=== PATIENT | female | born 1980 | race Caucasian/White ===

== ENCOUNTER → 2021-12-31 09:13 | Outpatient (BNVA) | payer MEDICAID, SELFPAY | PROVIDERS: PCP Obstetrics & Gynecology; Referring Provider Obstetrics & Gynecology; Visit Provider Internal Medicine Rheumatology | DX: M25.50 Pain in unspecified joint (principal); R76.8 Other specified abnormal immunological findings in serum; Z79.899 Other long term (current) drug therapy; Z11.59 Encounter for screening for other viral diseases; Z11.1 Encounter for screening for respiratory tuberculosis; G35 Multiple sclerosis; G80.9 Cerebral palsy, unspecified; Z91.014 Allergy to mammalian meats | CPT/HCPCS: 71046; 73130; 73630; 80076; 82306; 82565; 84439; 84443; 85025; 85651; 86140; 86160; 86162; 86235; 86255; 86376; 86480; 86704; 86803; 87340; 99205 ==

== ENCOUNTER → 2022-01-31 10:06 | Outpatient (BNVA) | payer MEDICAID, SELFPAY | PROVIDERS: PCP Obstetrics & Gynecology; Referring Provider Internal Medicine Rheumatology; Visit Provider Specialist | DX: G80.1 Spastic diplegic cerebral palsy (principal); G43.711 Chronic migraine without aura, intractable, with status migrainosus; F41.9 Anxiety disorder, unspecified | CPT/HCPCS: 99204; 99205 ==

== ENCOUNTER 2022-02-07 11:47 | Outpatient (CLI) | payer MEDICAID, SELFPAY ==
--- NOTE | 2022-02-07 11:58 | MR_ITS ---
WS: [id number] MRI HEAD WITH CONTRAST TECHNIQUE: Sagittal T1, T2 axial, T2 axial FLAIR, axial susceptibility weighted imaging, axial diffus ion weighted images, and coronal T2 images were obtained. Pre and post-T1 axial and post T1 coronal i mages. ADC and FSPGR images. CLINICAL INFORMATION: G35 - Multiple sclerosis COMPARISON: None. FINDINGS: No evidence of restricted diffusion to suggest acute ischemia. Ventricular system and basal cisterns are patent. Mild patchy supratentorial pericallosal white matter changes compatible with history of d emyelinating disease. No significant infratentorial white matter changes. Normal posterior fossa. Nor mal vascular flow voids at the skull base. No extra-axial fluid collections. Paranasal sinuses and ma stoid air cells well aerated. No hemosiderin on the susceptibly weighted images. Normal optic chiasm and pituitary infundibulum. Te mporal lobes and hippocampal formations are normal in appearance. Mild T1 hypointense lesion load. No significant parenchymal volume loss. No significant atrophy of the corpus callosum. No abnormal gadolinium enhancement to indicate active disease. No abnormal intracranial enhancement. Normal cavernous sinuses and Meckel's cave. Normal posterior nasopharynx. Visualized orbits are fredy l. MR/MR head wo/w con [id number] IMPRESSION: 1. Mild patchy supratentorial white matter changes in a pericallosal distribut ion compatible with history of demyelinating disease. 2. No abnormal intracranial enhancement to indicate active disease. 3. No significant parenchymal volume loss. No significant atrophy of the corpu s callosum. 4. Mild T1 hypointense lesion load. 5. No hemosiderin on susceptibly weighted images. 6. No other significant findings.
[2022-02-07] MEDS: gadobenate dimeglumine 20 mL vial IV (12:51)
== END 2022-02-07 11:48 | disposition home or self-care (01) ==
LOC: RAD 11:48
PROVIDERS: PCP Obstetrics & Gynecology; Visit Provider Internal Medicine Rheumatology
DX: G35 Multiple sclerosis (principal); G80.9 Cerebral palsy, unspecified; Z79.899 Other long term (current) drug therapy; M19.90 Unspecified osteoarthritis, unspecified site
CPT/HCPCS: 70553

== ENCOUNTER → 2022-04-23 10:52 | Outpatient (BNVA) | payer MEDICAID, SELFPAY | PROVIDERS: PCP Obstetrics & Gynecology; Visit Provider Internal Medicine Rheumatology | DX: G37.9 Demyelinating disease of central nervous system, unspecified (principal); G43.711 Chronic migraine without aura, intractable, with status migrainosus; G80.9 Cerebral palsy, unspecified; R41.89 Other symptoms and signs involving cognitive functions and awareness; R52 Pain, unspecified; M19.90 Unspecified osteoarthritis, unspecified site; Z79.899 Other long term (current) drug therapy; R76.8 Other specified abnormal immunological findings in serum | CPT/HCPCS: 99214; 99215 ==

== ENCOUNTER → 2022-09-25 11:06 | Outpatient (BNVA) | payer MEDICAID, SELFPAY | PROVIDERS: PCP Obstetrics & Gynecology; Referring Provider Obstetrics & Gynecology; Visit Provider Internal Medicine | DX: I10 Essential (primary) hypertension (principal); R00.0 Tachycardia, unspecified; R63.5 Abnormal weight gain; Z68.25 Body mass index [BMI] 25.0-25.9, adult | CPT/HCPCS: 99204 ==

== ENCOUNTER → 2022-11-06 12:54 | Outpatient (BNVA) | payer MEDICAID, SELFPAY | PROVIDERS: PCP Obstetrics & Gynecology; Visit Provider Internal Medicine | DX: R00.0 Tachycardia, unspecified (principal); E01.0 Iodine-deficiency related diffuse (endemic) goiter; I10 Essential (primary) hypertension; R63.5 Abnormal weight gain; Z68.25 Body mass index [BMI] 25.0-25.9, adult | CPT/HCPCS: 99214 ==

== ENCOUNTER → 2022-11-25 09:04 | Outpatient (BNVA) | payer MEDICAID, SELFPAY | PROVIDERS: PCP Obstetrics & Gynecology; Visit Provider Specialist | DX: G35 Multiple sclerosis (principal); G37.9 Demyelinating disease of central nervous system, unspecified; M19.90 Unspecified osteoarthritis, unspecified site; G80.9 Cerebral palsy, unspecified; M54.2 Cervicalgia | CPT/HCPCS: 99214 ==

== ENCOUNTER 2022-12-04 12:43 | Outpatient (CLI) | payer MEDICAID, SELFPAY ==
--- NOTE | 2022-12-04 13:00 | US_ITS ---
WS: [id number] ULTRASOUND THYROID TECHNIQUE: Ultrasound of the thyroid. CLINICAL INFORMATION: weight gain COMPARISON: None. FINDINGS: Thyroid: Right and left thyroid lobes are normal in size and echotexture. A few tiny incidental collo id cysts. No suspicious nodules. Right thyroid lobe: 3.9 cm x 1.3 cm x 1.1 cm Left thyroid lobe: 4.6 cm x 1.3 cm x 0.9 cm. Isthmus: 0.3 mm. Cervical lymphadenopathy: None. US/US thyroid [id number] IMPRESSION: Unremarkable thyroid ultrasound.
== END 2022-12-04 12:44 | disposition home or self-care (01) ==
LOC: RAD 12:46
PROVIDERS: PCP Obstetrics & Gynecology; Visit Provider Internal Medicine
DX: R63.5 Abnormal weight gain (principal)
CPT/HCPCS: 76536